=== PATIENT | female | born 1985 | race Caucasian/White ===

== ENCOUNTER 2025-05-13 19:23 | Emergency (ER) | payer MEDICAID ==
[~2025-05-13] VITALS: Ht 175.3 cm; Wt 86.2 kg
[2025-05-13 20:57] VITALS: BP 142/81; TEMP 97.9; O2SAT 98
[2025-05-13] MEDS ORDERED: AMOX-430 PO (21:24)
[2025-05-13] MEDS ORDERED: IBUP-1953 PO (21:24)
== END 2025-05-13 21:28 | disposition home or self-care (01) ==
LOC: ER 19:29
DX: K04.7 Periapical abscess without sinus (principal)